=== PATIENT | female | born 1985 | race Caucasian/White ===

== ENCOUNTER 2024-11-13 18:38 | Emergency (ER) | payer OTHER ==
[2024-11-13 18:57] VITALS: TEMP 98
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
[2024-11-13] MEDS: BACITRACIN ZINC 500 UNIT/GM OINT 28.4 GM TUBE TOPICAL ONE (20:11)
[2024-11-13 20:19] VITALS: BP 100/61; PULSE 72; RESP 18
== END 2024-11-13 20:14 | disposition home or self-care (01) ==
LOC: EC 18:38
DX: T23.101A Burn of first degree of right hand, unspecified site, initial encounter (principal); F17.200 Nicotine dependence, unspecified, uncomplicated; Z88.2 Allergy status to sulfonamides; T31.0 Burns involving less than 10% of body surface; X58.XXXA Exposure to other specified factors, initial encounter
CPT/HCPCS: 99283